=== PATIENT | female | born 2000 | race Caucasian/White ===

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

== ENCOUNTER 2020-01-22 16:08 | Emergency (ER) | payer BC, SELFPAY ==
[2020-01-22 16:09] VITALS: BP 125/72; PULSE 91; RESP 16; TEMP 36.7; O2SAT 98; BMI 29.2
--- NOTE | 2020-01-22 16:31 | HMH.EDUTC ---
[facility] [place] Disposition Clinical Impression: Exposure to COVID-19 virus Disposition: Home, Self-Care Condition on Discharge: Good Instructions: Preventing the Spread of Coronavirus Discharge Instructions Additional Instructions: *Monitor Temp, Over the counter Motrin or Tylenol as directed/as needed Tylenol every 4 hours and Motrin every 6 hours (as long as your family doctor has told you that you can take it) for fever or pain. and straight to ER if unable to lower temp less than 101.0 after medication given *Warm salt water gargles may help to soothe the throat *Throat Lozenges *Warm fluids like tea with honey may help to soothe the throat *Sleep elevated *Humidifier/Vaporizer Follow up IMMEDIATELY for new or worsening symptoms or no Noticeable improvement over the next 48-72 hours. 911 for difficulty breathing or swallowing You were tested for today for COVID19 your test result should be back in the next 24-48 hours, you may call to the [facility] to see if your test results are back in the next 48 hours [phone] [facility] hours are 9am-9pm You was given a handout with instructions for Self Quarantine and Self isolation for while you wait on test results and what to do if they are positive If you are positive the Health Dept will be contacting you also Prescriptions: Brompheniramine/Pseudoephed/Dm [Bromfed Dm Cough Syrup] 5 - 10 ml PO Q46H PRN #150 ml PRN Reason: Cough Transmission Status: Received by [id number] Referrals: Josse Mejia [Primary Care Provider] - As needed Forms: Work/School Release Time of Disposition: 16:32 Medical Decision Making - Cj Inquiry Pt receiving controlled substance: No Cj was queried for this patient: No Vital Signs: 01/22/20 16:09 Temperature 98.1 F Temperature Source Oral Pulse Rate [Right] 91 H Respiratory Rate 16 Blood Pressure [Right Arm] 125/72 Blood Pressure Mean [Right Arm] 89 Blood Pressure Source [Right Arm] Automatic Cuff Blood Pressure Position [Right Arm] Sitting 02 Sat by Pulse Oximetry 98 Oxygen Delivery Method Room Air Orders (Tests/Meds): ORDERS Category Date Time Status Covid-19 Nasal PCR Sendout [facility] 01/22/20 16:16 Ordered Medical Decision Narrative: denies [facility] HPI - General Stated complaint: covid test Time Seen by Provider: 01/22/20 16:31 Mode of Arrival: Ambulatory Source of Information: Patient Limitations: No Limitations Description of Symptoms (Recalled from Triage Doc. by RN): cough and headache, exposure to covid HEENT Symptoms (Recalled from RN notes): Yes (cough and headache) Resp Symptoms (Recalled from RN notes): No Skin Symptoms (Recalled from RN notes): No MS Symptoms (Recalled from RN notes): No Functional Status (Recalled from RN notes): na - History of Present Illness Provider Complaint: Patient states that she was recently exposed to multiple family members that tested positive for COVID and states that she has been having headache cough and runny nose and wanted to get tested - Related Data Previous Rx's Medication Instructions Recorded medroxyprogesterone 150 mg/mL 150 mg IM [id number] #1 ml 12/05/18 intramuscular suspension Brompheniramine/Pseudoephed/Dm 5 - 10 ml PO Q46H PRN #150 ml 01/22/20 [Bromfed Dm Cough Syrup] Allergies Allergy/AdvReac Type Severity Reaction Status Date / Time No Known Allergies Allergy Verified 12/30/18 14:59 - Worker's Comp Is this a Worker's Comp case?: No [facility] History - Hepatitis A Screen Drug use history?: No High risk sexual behaviors?: No History of sexually transmitted infection?: No Currently employed?: No Childcare worker?: No Do you have indoor plumbing?: Yes Do you have electricity?: Yes Attestation statement:: This patient has been screened for Hepatitis A risk factors. I have reviewed the patient's past medical history: Yes Medical History: Denies:: Diabetes Mellitus Type 1, Seizures Other Surgeries: No:
[2020-01-22 16:45] VITALS: BP 128/70; PULSE 80; RESP 16; TEMP 36.8; O2SAT 98
--- NOTE | 2020-01-24 16:34 | PC.NURSE ---
LAB REPORTED POSITIVE COVID TEST. PATIENT NOTIFIED OF POSITIVE RESULTS AT THIS TIME
[2020-01-24 16:36] LABS: Covid-19 Nasal PCR Sendout Lex Positive
== END 2020-01-22 16:46 | disposition home or self-care (01) ==
PROVIDERS: Emergency Provider Nurse Practitioner; PCP Family Medicine
DX: U07.1 COVID-19 (principal)
CPT/HCPCS: 99201; U0004

== ENCOUNTER → 2021-03-08 13:41 | Outpatient (CLI) | payer BC, SELFPAY | PROVIDERS: Visit Provider Obstetrics & Gynecology | DX: Z34.90 Encounter for supervision of normal pregnancy, unspecified, unspecified trimester (principal) | CPT/HCPCS: 36415; 84702 ==

== ENCOUNTER → 2021-04-01 14:44 | Outpatient (CLI) | payer BC, SELFPAY ==
--- NOTE | 2021-04-01 14:51 | US_ITS ---
FINAL REPORT CLINICAL HISTORY: dates FINDINGS: Sonographic images of the pelvis were obtained. A viable intrauterine is noted. A yolk sac is present and measures 0.55 cm. [place] to rump length measures 3.28 cm which corresponds to 10 weeks 2 days gestation. Heartbeat is identified and measures 164 beats per minute. The right ovary is within normal limits. The left ovary is within normal limits. IMPRESSION: Single, living, intrauterine gestation with 10 weeks 2 days gestational age. Reviewed, Interpreted and Dictated by Grabiel Redmond III, MD Transcribed by Staci De La Torre Authenticated by Grabiel Redmond III, MD on 04/01/2021 04:36:50 PM [facility]
== END ==
LOC: RAD 14:48
PROVIDERS: PCP Family Medicine; Visit Provider Obstetrics & Gynecology
DX: Z34.90 Encounter for supervision of normal pregnancy, unspecified, unspecified trimester (principal)
CPT/HCPCS: 76801

== ENCOUNTER → 2021-04-08 11:11 | Outpatient (CLI) | payer BC, SELFPAY ==
[2021-04-08 11:49] LABS: Basophils % 0.2 % (0.1-2.0); Eosinophils # 0.1 K/mm3 (0.0-0.4); Eosinophils % 1.3 % (0.1-12.0); Hematocrit 37.1 % (37.0-47.0); Hemoglobin 12.6 g/dL (12.2-16.2); Lymphocytes # 1.9 K/mm3 (0.7-4.5); Lymphocytes % 20.6 % (10-50); Mean Corpuscular HGB Conc 33.9 g/dL (31.8-35.4); Mean Corpuscular Hemoglobin 28.8 pg (27.0-31.2); Mean Corpuscular Volume 84.9 fl (81-99); Mean Platelet Volume 8.2 fl (7.4-10.4); Monocytes # 0.3 K/mm3 (0.1-1.0); Monocytes % 3.2 % (1.7-9.3); Neutrophils # 6.9 K/mm3 (1.8-7.8); Neutrophils % 74.7 % (37.0-80.0); Platelet Count 227 K/mm3 (142-424); Red Blood Count 4.36 M/mm3 (4.20-5.40); Red Cell Distribution Width 12.2 % (11.5-17.5); White Blood Count 9.2 K/mm3 (4.5-13.0)
[2021-04-09 08:19] LABS: Rubella Antibodies, IgG 4.51 index (Immune >0.99)
[2021-04-09 11:03] LABS: Rapid Plasma Reagin Ab Titer Non Reactive (NonRea<1:1)
[2021-04-09 12:10] LABS: HIV Screen 4th Generation wRfx Non Reactive (Non Reactive); Hepatitis B Surface Antigen Negative (Negative); Hepatitis C Antibody <0.1 s/co ratio (0.0-0.9)
[2021-04-11 12:35] LABS: Neisseria gonorrhoeae, NAA Negative (Negative)
== END ==
LOC: LAB 11:13
PROVIDERS: Visit Provider Obstetrics & Gynecology
DX: Z34.90 Encounter for supervision of normal pregnancy, unspecified, unspecified trimester (principal)
CPT/HCPCS: 36415; 85025; 86592; 86703; 86762; 86850; 87340; 87380; 87491; 87591; G0432

== ENCOUNTER → 2021-04-08 13:57 | Outpatient (CLI) | payer BC, SELFPAY | PROVIDERS: Visit Provider Obstetrics & Gynecology | DX: Z34.90 Encounter for supervision of normal pregnancy, unspecified, unspecified trimester (principal) ==

== ENCOUNTER → 2021-06-08 14:10 | Outpatient (CLI) | payer BC, SELFPAY ==
--- NOTE | 2021-06-08 14:13 | US_ITS ---
FINAL REPORT CLINICAL HISTORY: anatomy scan FINDINGS: There is a single live intrauterine gestation. Presentation is cephalic. The cervix is closed and measures 3.8 cm. Placenta is posterior. movement is noted. Cardiac activity is confirmed at 135 beats per minute. Three-vessel cord with satisfactory umbilical cord insertion. Four-chamber heart is noted. brain and ventricles are unremarkable. Chest and diaphragm are unremarkable. ABDOMEN: Both kidneys are unremarkable. Stomach is unremarkable. SPINE: No anomalies identified. Both arms and legs noted. AMNIOTIC FLUID: Appropriate amount. MEASUREMENTS: ULTRASOUND AGE: 20 weeks 2 days. GESTATION AGE: 20 weeks 0 days. ESTIMATED WEIGHT: 349 g GROWTH PERCENTILE: 67 % BPD: 4.6 cm consistent with 20 weeks 0 days. OFD: With 20 weeks 4 days. HC: 16.9 cm consistent with 19 weeks 4 days. AC: 15.2 cm consistent with 20 weeks 3 days. FL: 3.4 cm consistent with 20 weeks 5 days. CEREBELLUM: 2.0 cm consistent with 20 weeks 2 days. HUMERUS: 3.3 cm consistent with 21 weeks 1 days. Nuchal fold: 1.3 mm HC/AC: 1.12 CI: 76% FL/BPD: 73% FL/AC: 22% IMPRESSION: Single living IUP with an ultrasound age of 20 weeks 2 days. Reviewed, Interpreted and Dictated by Grabiel Redmond III, MD Transcribed by Jovi Recinos Authenticated by Grabiel Redmond III, MD on 06/08/2021 04:54:23 PM [facility]
== END ==
LOC: RAD 14:11
PROVIDERS: PCP Family Medicine; Visit Provider Obstetrics & Gynecology
DX: Z34.90 Encounter for supervision of normal pregnancy, unspecified, unspecified trimester (principal)
CPT/HCPCS: 76805

== ENCOUNTER → 2021-07-15 09:22 | Outpatient (CLI) | payer BC, SELFPAY ==
[2021-07-15 09:41] LABS: Basophils # 0.1 K/mm3 (0-0.2); Basophils % 0.9 % (0.1-2.0); Eosinophils # 0.2 K/mm3 (0.0-0.4); Eosinophils % 1.8 % (0.1-12.0); Hematocrit 33.9 % (37.0-47.0); Hemoglobin 11.7 g/dL (12.2-16.2); Lymphocytes # 2.2 K/mm3 (0.7-4.5); Lymphocytes % 17.9 % (10-50); Mean Corpuscular HGB Conc 34.4 g/dL (31.8-35.4); Mean Corpuscular Hemoglobin 30.6 pg (27.0-31.2); Mean Corpuscular Volume 88.8 fl (81-99); Mean Platelet Volume 8.7 fl (7.4-10.4); Monocytes # 0.4 K/mm3 (0.1-1.0); Monocytes % 3.4 % (1.7-9.3); Neutrophils # 9.2 K/mm3 (1.8-7.8); Platelet Count 263 K/mm3 (142-424); Red Blood Count 3.82 M/mm3 (4.20-5.40); Red Cell Distribution Width 13.7 % (11.5-17.5); White Blood Count 12.1 K/mm3 (4.5-13.0)
[2021-07-15 09:52] LABS: Glucose,Fasting 92 mg/dl (74-100)
[2021-07-15 11:26] LABS: Glucose 1 Hour 119 mg/dL (74-100)
== END ==
PROVIDERS: Visit Provider Obstetrics & Gynecology
DX: Z34.90 Encounter for supervision of normal pregnancy, unspecified, unspecified trimester (principal)
CPT/HCPCS: 36415; 82951; 85025

== ENCOUNTER → 2021-09-16 13:10 | Outpatient (CLI) | payer BC, SELFPAY ==
--- NOTE | 2021-09-16 13:12 | US_ITS ---
FINAL REPORT CLINICAL HISTORY: GROWTH COMPARISON: 06/08/2021 FINDINGS: There is a single live intrauterine gestation. Presentation is vertex. The cervix is closed and measures there. Placenta is . movement is noted. AMNIOTIC FLUID: Appropriate amount. MEASUREMENTS: ULTRASOUND AGE: 34 weeks 2 days. GESTATION AGE: 34 weeks 2 days. ESTIMATED WEIGHT: 2395 g GROWTH PERCENTILE: 44% BPD: 8.49 cm corresponding to 34 weeks 2 days. OFD: 10.76 cm corresponding to 34 weeks 3 days. HC: 30.45 cm corresponding to 34 weeks 0 days. AC: 30.37 cm corresponding to 34 weeks 3 days. FL: 6.69 cm corresponding to 34 weeks 3 days. HC/AC: 1.00 CI: 79% FL/BPD: 99% FL/AC: 22% IMPRESSION: Single living IUP with an ultrasound age of 34 weeks 2 days. 44% growth percentile. Reviewed, Interpreted and Dictated by Corin Lange MD Transcribed by Claire Wylie Authenticated and [facility]
== END ==
LOC: RAD 13:10
PROVIDERS: PCP Family Medicine; Visit Provider Obstetrics & Gynecology
DX: O36.5990 Maternal care for other known or suspected poor fetal growth, unspecified trimester, not applicable or unspecified (principal)
CPT/HCPCS: 76816

== ENCOUNTER → 2021-09-30 13:30 | Outpatient (CLI) | payer SELFPAY | PROVIDERS: Visit Provider Obstetrics & Gynecology | DX: Z34.90 Encounter for supervision of normal pregnancy, unspecified, unspecified trimester (principal) | CPT/HCPCS: 86403 ==

== ENCOUNTER → 2021-10-07 | Outpatient (CLI) | payer BC, SELFPAY | PROVIDERS: Visit Provider Obstetrics & Gynecology | DX: Z34.90 Encounter for supervision of normal pregnancy, unspecified, unspecified trimester (principal) ==

== ENCOUNTER 2021-10-20 04:59 | Inpatient (IN) | payer SELFPAY ==
[2021-10-20 05:03] VITALS: BMI 29.6
[2021-10-20 05:26] VITALS: BP 141/86; PULSE 90; RESP 18; TEMP 36.8; O2SAT 99; BMI 29.6
[2021-10-20 05:53] LABS: Microscopic, Urine URINE MICROSCOPIC (MICROSCOPIC)
[2021-10-20 05:57] LABS: Coronavirus 19, PCR Not Detected (NotDetected); Influenza A, PCR Not Detected (NotDetected); Influenza B, PCR Not Detected (NotDetected)
[2021-10-20 06:01] LABS: Basophils % 0.4 % (0.1-2.0); Eosinophils # 0.2 K/mm3 (0.0-0.4); Eosinophils % 1.7 % (0.1-12.0); Hematocrit 31.9 % (37.0-47.0); Hemoglobin 10.7 g/dL (12.2-16.2); Lymphocytes # 2.8 K/mm3 (0.7-4.5); Lymphocytes % 28.2 % (10-50); Mean Corpuscular HGB Conc 33.6 g/dL (31.8-35.4); Mean Corpuscular Hemoglobin 28.8 pg (27.0-31.2); Mean Corpuscular Volume 85.8 fl (81-99); Mean Platelet Volume 9.1 fl (7.4-10.4); Monocytes # 0.4 K/mm3 (0.1-1.0); Monocytes % 4.1 % (1.7-9.3); Neutrophils # 6.4 K/mm3 (1.8-7.8); Neutrophils % 65.6 % (37.0-80.0); Platelet Count 239 K/mm3 (142-424); Red Blood Count 3.72 M/mm3 (4.20-5.40); Red Cell Distribution Width 14.1 % (11.5-17.5); White Blood Count 9.8 K/mm3 (4.8-10.8)
[2021-10-20 06:04] LABS: Appearance,Urine CLEAR (Clear); Bilirubin,Urine Negative (Negative); Blood, Urine Negative (Negative); Color,Urine YELLOW (Yellow); Glucose,Urine (UA) Negative (Negative); Ketones,Urine Negative (Negative); Leukocyte Esterase,Urine 2+ (Negative); Nitrate,Urine Negative (Negative); Protein,Urine Negative (Negative); Specific Gravity, Urine 1.015 (1.005-1.030); Urobilinogen,Urine 0.2 EU/dl (0.2)
[2021-10-20 06:30] LABS: Bacteria,Urine Trace /lpf; RBC,Urine Occasional #/hpf (0-3)
[2021-10-20 07:24] LABS: Amphetamine/Metha Screen,Urine Negative ng/ml (<1000); Benzodiazepines Screen,Urine Negative ng/ml (<200)
[2021-10-20 07:25] LABS: Barbiturates Screen,Urine Negative ng/ml (<200); Cannabinoid Screen,Urine Negative ng/ml (<50)
[2021-10-20 07:26] LABS: Cocaine Screen,Urine Negative ng/ml (<300)
[2021-10-20 07:27] LABS: Methadone Screen,Urine Negative ng/ml (<300); Opiate Screen,Urine Negative ng/ml (<300)
[2021-10-20 07:28] LABS: Phencyclidine Screen,Urine Negative ng/ml (<25)
--- NOTE | 2021-10-20 07:41 | HMH.PHAINT1 ---
Pharmacy Intervention Comments: MEDICATION RECONCILIATION COMPLETED ON PATIENT USING EXTERNAL FILL HISTORY FROM PHARMACY. -BLAYNE MCCLELLAN, ANAD
--- NOTE | 2021-10-20 10:34 | P.PN_ITS ---
[facility] Social History Smoking Status: Never smoker second hand exposure: Yes alcohol intake: never substance use type: denies use, former substance user and marijuana current occupational status: unemployed and student Travel in the last 8 weeks: None adopted: No caregiver/support person: Yes foster care: No household members: family housing: house lives independently: Yes marital status: single current occupational exposures/hazards: No [facility] Anesthesia Checklist Patient Identification Patient Identification: Arm Band and Verbal (Name & ) Structural Data Admitted From: Inpatient Planned Operative Procedure/s: Labor epidural Consent for Planned Operative Procedure(s) Verified: Yes NPO Status Verified Time NPO: 00:00 Chart Verification Results Verified: CBC Additional verifications Anesthesia Reactions: No Airway Assessment C-Spine Mobility Assessed: Yes TMJ Mobility Assessed: Yes Dentition: Good Dentition Neurological Assessment Level of Consciousness: Awake Hx Seizures: No Numbness or tingling in extremities: No Anesthesia Plan Anesthesia Risk discussed: Yes Anesthesia Plan: Verified ASA Class: II Anesthesia Type: Epidural
--- NOTE | 2021-10-20 12:08 | EXP.HP ---
History of Present Illness *Admission Date: 10/20/21 *Reason for visit:: Induction of labor *History of present illness: 21 yo @ 39 1/7 weeks for induction of labor care at [facility]-- Dr. Thomas WU 10/26/21; dating by by 10 27 ultrasound uncomplicated Recent ultrasound for growth estimated weight at 44% GBS negative [facility] Social History Smoking Status: Never smoker second hand exposure: Yes alcohol intake: never substance use type: denies use, former substance user and marijuana current occupational status: unemployed and student Travel in the last 8 weeks: None adopted: No caregiver/support person: Yes foster care: No household members: family housing: house lives independently: Yes marital status: single current occupational exposures/hazards: No Review of Systems Constitutional Constitutional: Reports system reviewed and no additional complaints, except as documented and Denies headache(s) ENT Ears, Nose, Mouth, and Throat: Denies headache(s) *Genitourinary Genitourinary: Denies abnormal vaginal bleeding *Neurologic Neurologic: Denies headache(s) and Denies other visual disturbances Meds Home Medications and Allergies Home Medications Medication Instructions Recorded Confirmed Type prenat.vits,ira,mbp-bmwd-vsism 1 tab PO DAILY Supplement 04/08/21 10/20/21 History ferrous sulfate 325 mg (65 mg 325 mg PO DAILY Supplement 08/19/21 10/20/21 History iron) tablet ondansetron 4 mg disintegrating 4 mg PO Q4HP PRN nausea and 10/20/21 10/20/21 History tablet vomiting New Prescriptions to Start Prescriptions: Allergies Allergy/AdvReac Type Severity Reaction Status Date / Time No Known Allergies Allergy Verified 10/14/21 14:14 Exam Data for Last 24 hours Vital signs and Labs for Last 24 Hours: Temp Pulse Resp BP Pulse Ox 98.2 F 90 18 141/86 H 99 10/20/21 05:26 10/20/21 05:26 10/20/21 05:26 10/20/21 05:26 10/20/21 05:26 Laboratory Results - last 24 hr 10/20/21 05:15: Urine Color Yellow, Urine Appearance Clear, Urine pH 7.0, Ur Specific [place] 1.015, Urine Protein Negative, Urine Glucose (UA) Negative, Urine Ketones Negative, Urine Blood Negative, Urine Nitrate Negative, Urine Bilirubin Negative, Urine Urobilinogen 0.2, Ur Leukocyte Esterase 2+ A, Urine RBC Occasional, Urine WBC 3-5, Ur Squamous Epith Cells 5-10, Urine Bacteria Trace 10/20/21 05:15: Urine Opiates Screen Negative, Urine Methadone Screen Negative, Ur Barbituates Screen Negative, Ur Phencyclidine Scrn Negative, Ur Amphetamines Screen Negative, U Benzodiazepines Scrn Negative, Urine Cocaine Screen Negative, U Marijuana (THC) Screen Negative 10/20/21 05:35: WBC 9.8, RBC 3.72 L, Hgb 10.7 L, Hct 31.9 L, MCV 85.8, MCH 28.8, MCHC 33.6, RDW 14.1, Plt Count 239, MPV 9.1, Neut % (Auto) 65.6, Lymph % (Auto) 28.2, [place] % (Auto) 4.1, Eos % (Auto) 1.7, Baso % (Auto) 0.4, Neut # (Auto) 6.4, Lymph # (Auto) 2.8, [place] # (Auto) 0.4, Eos # (Auto) 0.2, Baso # (Auto) 0.0 10/20/21 05:35: Blood Type O Positive, Antibody Screen Negative 10/20/21 05:40: SARS-CoV-2 (PCR) Not detected, Influenza A Untype (PCR) Not detected, Influenza Type B (PCR) Not detected I & O for Last 24 hours: Intake & Output 10/18/21 10/19/21 10/20/21 10/21/21 11:59 11:59 11:59 11:59 Weight 162 lb Constitutional Constitutional: no acute distress *Routine HEENT Exam Head: Present normocephalic Eye: Absent conjunctival icterus or scleral injection ENT: Present mucous membranes moist *Routine Neck Exam Neck: Present supple *Routine Respiratory Exam Respiratory: Present CTA bilaterally; Absent respiratory distress *Routine Cardiovascular Exam Cardiovascular: Present RRR *Routine Abdominal Exam Abdominal: Present soft; Absent tenderness or distended *Routine Rectal Exam Rectal:: deferred *Routine Genitalia Exam Genitalia:: normal female Co
--- NOTE | 2021-10-20 16:15 | EXP.DN ---
Delivery Note Delivery Date:: 10/20/21 Delivery Time:: 15:52 Anesthesia Type: Epidural Was labor medically induced?: Yes Induction method: per pitocin protocol Gestational age (weeks): 39 delivered prior to 39 weeks?: No Infant Gender: Female at 1 minute: 7 at 5 minutes: 9 Delivery Procedure:: Spontaneous vaginal delivery of live born female infant over intact perineum. Delivery uncomplicated No nuchal cord No shoulder dystocia with delivery placed in [facility]URICE immediately after delivery, with standard nursing assessment performed Apgars: 7 & 9 Placenta spontaneously expressed and examined; noted to be complete/intact. Vulva, vagina, and cervix inspected; no lacerations present EBL: 300 cc All sponge/needle/instrument counts correct at conclusion of procedure Placental Delivery Description: Spontaneous
[2021-10-21 06:59] LABS: Hematocrit 29.8 % (37.0-47.0); Hemoglobin 9.7 g/dL (12.2-16.2)
--- NOTE | 2021-10-21 08:43 | EXP.ACUTE.PN ---
Subjective *Date: 10/21/21 *Time: 08:43 Interval history: PPD #1 No unusual complaints Lochia is light No perineal pain but reports pain with hemorrhoids She is tolerating a regular diet She is ambulating and voiding without difficulty Medical Exam Vital signs and Labs for Last 24 Hours: Temp Pulse Resp BP Pulse Ox 98.2 F 90 18 141/86 H 99 10/20/21 05:26 10/20/21 05:26 10/20/21 05:26 10/20/21 05:10/20/21 05:26 Laboratory Results - last 24 hr 10/21/21 06:20: Hgb 9.7 L, Hct 29.8 L I & O for Labs for Last 24 Hours: Intake & Output 10/18/21 10/19/21 10/20/21 10/21/21 11:59 11:59 11:59 11:59 Weight 162 lb Microbiology Reports for the Last 24 Hours: Microbiology 10/20/21 05:15 Urine,Clean Catch Urine Culture - Preliminary NO GROWTH AFTER 24 HOURS Respiratory: CTA bilaterally Cardiac: Regular Rate GI: soft, distention or tenderness Rectal (female): hemorrhoids Comment:: Fundus firm below umbilicus Extremities: edema (1+) Skin: rash Assessment and Plan *Assessment and plan (1) 39 weeks gestation of : Status: Acute Category: Medical Code(s): Z3A.39 - 39 weeks gestation of (2) Anemia during : Status: Acute Category: Medical Code(s): O99.019 - Anemia complicating , unspecified trimester (3) Normal spontaneous vaginal delivery: Status: Acute Category: Medical Code(s): O80 - Encounter for full-term uncomplicated delivery Assessment and plan all Dx Assessment and Plan All Dx:: Routine care Tucks pads and hydrocortisone PRN for hemorrhoid relief Anticipate discharge home tomorrow
--- NOTE | 2021-10-22 09:27 | EXP.DC.SUM ---
General Admission date:: 10/20/21 Discharge date: 10/22/21 HPI HPI HPI: PPD # 2 Patient is doing well. Resting comfortably in bed. Denies pain. Light lochia. She is breast feeding. Voiding without difficulty. Passing flatus. Tolerating regular diet. Denies fever/chills, chest pain and shortness of breath. Denies headaches, vision changes and swelling. Hospital Course Hospital Course Hospital Course: Ms Tawny Austin is a 21 yo @ 39 1/7 weeks, by first trimester ultrasound, with EDC 10/26/21 admitted for induction of labor. She had good care. GBS negative. She had a normal spontaneous vaginal delivery on 10/20/21. She deliverd a little girl, Eliud, weighing 7 lb 1 oz. APGARS 7, 9. EBL 300 cc. PPD # 1. Patient was doing well. Pain controlled. She was breast feeding. Appropriate lochia. Voiding without difficulty. Passing flatus. Tolerating regular diet. Heart was regular rate and rhythm. Lungs were clear to auscultation. Abdomen was soft, nontender and nondistended. No lower extremity edema. Vital signs were stable, afebrile. POD # 2 Patient was doing well. Pain controlled. She is breast feeding. Light lochia. Voiding without difficulty. Passing flatus. Tolerating regular diet. Heart was regular rate and rhythm. Lungs were clear to auscultation. Abdomen was soft, nontender and nondistended. No lower extremity edema. Vital signs were stable, afebrile. Normal hospital course. 10/20/21: Hgb 10.7, Hct 31.9 10/21/21: Hgb 9.7, Hct 29.8 Exam Data for Last 24 hours Vital signs and Labs for Last 24 Hours: Temp Pulse Resp BP Pulse Ox 98.2 F 90 18 141/86 H 99 10/20/21 05:26 10/20/21 05:26 10/20/21 05:26 10/20/21 05:26 10/20/21 05:26 I & O for Last 24 hours: Intake & Output 10/19/21 10/20/21 10/21/21 10/22/21 23:59 23:59 23:59 23:59 Weight 162 lb Microbiology Reports for the Last 24 Hours: Microbiology 10/20/21 05:15 Urine,Clean Catch Urine Culture - Final NO GROWTH AFTER 48 HOURS Constitutional Constitutional: no acute distress and cooperative *Routine HEENT Exam Head: Present normocephalic Eye: Absent conjunctivae pink ENT: Present mucous membranes moist *Routine Neck Exam Neck: Present full ROM *Routine Respiratory Exam Respiratory: Present CTA bilaterally and normal respiratory effort *Routine Cardiovascular Exam Cardiovascular: Present RRR *Routine Abdominal Exam Abdominal: Present soft and normoactive bowel sounds; Absent tenderness or distended Comments: Uterine fundus firm and below umbilicus *Routine Extremities Exam Extremities: Present full ROM; Absent edema or calf tenderness *Routine Neurological Exam Neurological: Present alert and oriented X3 Routine Psychiatric Exam Psychiatric: Present normal affect and cooperative DS: Diagnosis Discharge Diagnosis (1) 39 weeks gestation of : Status: Acute (2) Anemia during : Status: Acute (3) Normal spontaneous vaginal delivery: Status: Acute Meds Home Medications and Allergies Home Medications Medication Instructions Recorded Confirmed Type prenat.vits,ira,ign-uwlx-avkgh 1 tab PO DAILY Supplement 04/08/21 10/20/21 History ferrous sulfate 325 mg (65 mg 325 mg PO DAILY Supplement 08/19/21 10/20/21 History iron) tablet ondansetron 4 mg disintegrating 4 mg PO Q4HP PRN nausea and 10/20/21 10/20/21 History tablet vomiting New Prescriptions to Start Prescriptions: Allergies Allergy/AdvReac Type Severity Reaction Status Date / Time No Known Allergies Allergy Verified 10/14/21 14:14 Discharge Plan Disposition Patient Disposition: Home, Self-Care Condition: Good Discharge Order Discharge Orders: Discharge Order (Routine); Ordered 10/22/21 Ordered By: Mami Ott Follow up Plan Follow up with: Carina Guzman MD [Staff Physician] - Enter time for follow up Prescriptions/Medication Reconciliation:
== END 2021-10-22 10:56 | disposition home or self-care (01) | DRG 807 ==
PROVIDERS: Admitting Provider Obstetrics & Gynecology; PCP Family Medicine; Visit Provider Obstetrics & Gynecology
DX: O99.02 Anemia complicating childbirth (principal); Z37.0 Single live birth; D64.9 Anemia, unspecified; Z3A.39 39 weeks gestation of pregnancy
CPT/HCPCS: 59409; 36415; 59025; 80305; 81001; 85014; 85018; 85025; 86850; 87086; 94761; C1758; C9803; G0283; U0003; U0005